=== PATIENT | male | born 1995 | race Caucasian/White ===

== ENCOUNTER 2025-06-24 10:09 | Emergency (ER) | payer SELFPAY ==
[2025-06-24 10:17] VITALS: BP 158/100; PULSE 87; TEMP 36.7; O2SAT 100; BMI 40.7
--- NOTE | 2025-06-24 10:32 | XR_ITS ---
The [address] [address] Patient Name: TON CR MRN: [id number] date: 1995 Sex: M Assigned Patient Location: ED.MAIN Current Patient Location: Accession/Order Number: [id number] Exam Date: 06/24/2025 10:55 Report Date: 06/24/2025 11:49 At the request of: JEIMY CHOW MD Procedure: XR hand LT min 3V LEFT HAND - 3 views CLINICAL DATA: Laceration at the distal index finger with a chainsaw. COMPARISON: None AP, lateral and oblique views were obtained. There is no evidence of fracture or dislocation. A small soft tissue defect is seen at the distal lateral index finger compatible with the reported laceration. No radiopaque foreign bodies noted XR/XR hand LT min 3V IMPRESSION: NO ACUTE BONY INJURY. Impression dictated by: Karin Floyd M.D. 06/24/2025 11:49 AM Dictation Location: [place] [address] Electronically authenticated by: [id number] Y Date: 06/24/2025 11:49
--- NOTE | 2025-06-24 10:33 | ED_ITS ---
HPI HPI - General Adult General Chief complaint: Wound/Laceration Stated complaint: LACERATION L HAND Time Seen by Provider: 06/24/25 10:30 Source: patient Mode of arrival: walk-in History of Present Illness HPI narrative: 30-year-old male presents to the emergency department for chief complaint of laceration to his left index finger which was sustained on a chainsaw just before coming into the emergency department. Last tetanus shot was less than 5 years ago. No other injury was sustained. Related Data Previous Rx's ?Medication ?Instructions ?Recorded cephalexin 500 mg capsule 500 mg PO TID 5 days #15 cap s 06/24/25 Allergies Allergy/AdvReac Type Severity Reaction Status Date / Time Penicillins Allergy Rash Verified 06/24/25 10:17 Opioid HPI Opioid Management Most Recent Opioid Data: Last Pain Scale 8 Today, 10:26 Review of Systems ROS Narrative A ten point review of systems is negative except as noted above. PFSH PFSH Social History Little interest or pleasure in doing things: not at all Feeling down, depressed, or hopeless: not at all Exam Narrative Exam Narrative: Nurses note and vital signs reviewed General:The patient appears well and in no apparent distress.Patient is resting comfortably on cart. Skin:Warm, dry, no pallor noted.There is no rash noted. Head:Normocephalic, atraumatic Eye: Normal conjunctiva, no drainage Ears, Nose, Mouth, and Throat: oral mucosa is moist. Nares patent. Cardiovascular:Regular Rate and Rhythm Respiratory:Patient is in no distress, no accessory muscle use, lungs are clear to auscultation, no wheezing, rales or rhonchi Back:non-tender GI: Soft and nontender Musculoskeletal: The left hand is examined. He has an irregular less than 1 cm laceration at the distal aspect of his index finger. The nail is intact, no subungual hematoma. There is no active bleeding or foreign bodies noted. No other wounds are present. Neurological: Awake and alert Psychiatric:Cooperative Constitutional Vital Signs, click to edit/add: Last Vital Signs Temp 98.1 F 06/24/25 10:17 Pulse 87 06/24/25 10:17 Resp 18 06/24/25 10:17 BP 158/100 H 06/24/25 10:17 Pulse Ox 100 06/24/25 10:17 O2 Del Method Room Air 06/24/25 10:17 Course Vital Signs Vital signs: Vital Signs Temperature 98.1 F 06/24/25 10:17 Pulse Rate 87 06/24/25 10:17 Respiratory Rate 18 06/24/25 10:17 Blood Pressure 158/100 H 06/24/25 10:17 Pulse Oximetry 100 06/24/25 10:17 Oxygen Delivery Method Room Air 06/24/25 10:17 Temperature 98.1 F 06/24/25 10:17 Pulse Rate 87 06/24/25 10:17 Respiratory Rate 18 06/24/25 10:17 Blood Pressure 158/100 H 06/24/25 10:17 Pulse Oximetry 100 06/24/25 10:17 Oxygen Delivery Method Room Air 06/24/25 10:17 Medical Decision Making MDM Narrative Medical decision making narrative: X-ray my interpretation shows no fractures. He is placed on prophylactic Keflex and the wound was cleansed and dressed and tube gauze dressing applied. Treatment diagnosis and follow-up were discussed with the patient. Differential Diagnosis Differential Diagnosis: Laceration, fracture Imaging Data Left hand x-ray: My impression: X-ray of the left hand on my interpretation shows no acute findings Discharge Plan Discharge Chief Complaint: Wound/Laceration Clinical Impression: Laceration of left index finger Patient Disposition: Home, Self-Care Time of Disposition Decision: 11:12 Condition: Good Mode of Transportation: Private Vehicle Prescriptions / Home Meds: New cephalexin 500 mg capsule 500 mg PO TID 5 Days Qty: 15 0RF Print Language: Latvian Instructions: Finger Laceration (ED), Laceration Without Closure (ED) Additional Instructions: Leave tube gauze on for 48 hours. Remove and apply bandage daily. Referrals: Physician,Non-Staff, MD [Primary Care Provider] - 1 week
--- OUTSIDE RECORDS SUMMARY | 2025-06-24 10:53 | XMS_ITS | Patient Health Record ---
Author Organization [facility] vices Address [address] [place], [place] [id number] Support Name Relationship Address Phone Emelia Mays Emergency Contact [address] [place] [address] JodiKelvin ivory Guarantor Unknown [phone] Care Team Providers Care Monotype Machinist Name Role Phone Adria Barcenas Unavailable [phone] Reason For Referral No Information Social History Social History Additional DetailsCategorySocial InfoOptionsDetailsMigrated Social History Migrated Social History Caffeine Use, COMMENTS: pop 2-3 cans per day, ProblemStatus: Active, , Caffeine Use, ProblemStatus: Inactive, , Current tobacco use, AttributeTitle: Never smoker, ProblemStatus: Active, , DIET: Normal well-balanced diet for age, ProblemStatus: Inactive, , No Drug Use, ProblemStatus: Active, , No Drug Use, ProblemStatus: Inactive, , No significant stress issues with home, family, personal relationships, or work, ProblemStatus: Inactive, , Non Drinker/No Alcohol Use, ProblemStatus: Active, , Non Drinker/No Alcohol Use, ProblemStatus: Inactive, , Non Smoker/No Tobacco Use, ProblemStatus: Inactive, , PARENTS WORKING: Mother works outside the home, ProblemStatus: Inactive, , PARENTS WORKING: Mother works, ProblemStatus: Inactive, , Patient feels safe in relationships, ProblemStatus: Active, , PERSONS IN HOME: Patient lives with a sister, ProblemStatus: Inactive, , PERSONS IN HOME: Patient lives with siblings, ProblemStatus: Inactive, , PERSONS IN HOME: The patient lives with a brother, ProblemStatus: Inactive, , PERSONS IN HOME: The patient lives with parents, ProblemStatus: Inactive, , SCHOOL: In the 6th grade, ProblemStatus: Inactive, , SCHOOL: In the 7th grade, ProblemStatus: Inactive, , Tobacco/Smoke Exposure, AttributeTitle: Family members smoke indoors, ProblemStatus: Inactive, , Tobacco/Smoke Exposure, AttributeTitle: Frequent, ProblemStatus: Inactive Problems Problem Type SNOMED Code ICD Code Onset Dates Problem Status W/U Status Risk Notes Problem Derangement, other internal, knee (717.8) (717.8)12/19/2009ctiveconfirmed ProblemDepression screening (878720831)Screening for depression (Z13.31)Active confirmedDescription:Depression screeningProblemChronic sinusitis (16878230) Recurrent sinus infections (J32.9)ActiveconfirmedComment:Since he is Penicillin- allergic, will retreat with SMX-TMP, but for 14 days this time. USe Afrin spray BID for 3-5 days, at hs only.,Description:Recurrent sinusitisProblemAcne (69646851)Acne NEC (706.1) (706.1)07/22/2008ctiveconfirmedProblemAsthma (833597336)Asthma (J45.909)Activeconfirmed Comment:15year old male child here for check for cough, cold since 10 days. On exam- Chest occ transient crackles and wheezing on the left side. Advised: Albuterol q6h, zyrtec to continue. FU in 1 week/PRN. Mom verbalized understanding.,Description:ar ProblemContusion of lower leg (81207961)Contusion of leg, right (S80.11XA)Active confirmed Comment:Rest, take it easy, no Go-Kart racing this weekend. Keep right thigh wound clean and dry, topical antibacterial ointment. To ER if symptoms persist/worsen. PVU and agrees with plan of care.,Story:CT head and neck WNL fromER., ProblemAcute upper respiratory infection (99126265)Acute upper respiratory infection (J06.9)Activeconfirmed Comment:STrpe throat - negative. Advised: Azithromycin. FU in 1 week., ProblemAcute sinusitis (87288967)Sinusitis acute (461.9) (461.9)Activeconfirmed ProblemContusion of left shoulder (74002490891352806)Contusion of left shoulder (S40.012A)ActiveconfirmedComment:ROM exercises,,ProblemGeneral examination of patient (052328115)Routine general medical examination at a health care facility (V70.0) (V70.0)07/02/2008ctiveconfirmedProblemCommon cold (33018325)Acute nasopharyngitis (common cold) (460) (460)ActiveconfirmedComment:viral URI, sx rx , saline nose drops prn, dx course , complications of illness discussed , return if not betterin 4 days or ealier if concerns , to ER IF trouble breathing.mom verbalized understanding,ProblemAcute bronchitis (disorder) (36037526) Bronchitis, acute (466.0) (466.0)Activeconfirmed Comment:Advized : Azithromycin and continue Albuterol and Zyrtec. To FU in 1 week or PRN earlier for breathing difficulty, fever, headace, vomiting, worsening of cough or any other problem. 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 Comment:Apply cream twice daily for 3 days, wait 4 days, and then can repeat cycle up to 4 times Already scheduled with a surgeon for further evaluation Follow up with our office evaluation, ProblemSinusitis, acute (461.) (461)09/19/2009ctiveconfirmedProblemCephalalgia (13365849)Cephalalgia (R51.9)12/16/2008ctiveconfirmedDescription:Headache ProblemCough (10589267)Cough (R05.9)07/13/2007ctiveconfirmed Plan Of Treatment No Information Insurance Providers Payer Name Payer Address Payer Phone Subscriber Number Group Number Insured Name Patient Relationship to Insured Coverage Start Date Coverage End Date Eric [facility] [address] [place], [place] [phone] [id number] [employer] ivory - patient is the [id number]/01/2017Vini Granger [facility] [address] [address] [place] [phone], [place]Self - patient is the [id number] [facility] after [address] [place], [place] [id number], AustinSelf - patient is the [id number]/24/2017 DMedicaid [facility] after CaresourceDentaquest[address] [place], [place] [id number], AustinSelf - patient is the [facility] [address] [place], [place] [phone], AustinSelf - patient is the [id number] Garcia [facility] [address] [place] [phone], AustinSelf - patient is the vawznkz3609/01/2022 Medical (General) History Surgical History Surgery Date(Month/Year) left arm fracture and repair, ProblemSta tus: Active,
--- OUTSIDE RECORDS SUMMARY | 2025-06-24 10:53 | XMS_ITS | Clinical Summary ---
Author Organization [facility] tem Address [id number] [address] [place] [address] Care Team Providers Care Spike Machine Feeder Name Role Phone Services, [facility] Primary Care Provider Allergies Active AllergyReactionsCriticalityNoted LxqkHdmmhiloEoonwjgacvp13/16/2017 Medications MedicationSigDispense QuantityRefillsLast FilledStart DateEnd DateStatus albuterol (PROVENTIL HFA;VENTOLIN HFA) 90 mcg/actuation inhaler Indications:BronchitisInhale 2 puffs every 4 (four) hours as needed for wheezing. 18 g 1Active Active Problems ProblemNoted DateDiagnosed ZvcxYtripbyzm77/23/2018 Overview (11/21/2017): ==== 11/21/2017 ==== patient with perirectal condyloma. No scrotal or penile condyloma. Patient was given topical treatment for the emergency department. Per the patient as well as a significant otherit is working. On examination appears he still has a few more lesions. These are best served with evaluation management by general surgery. There are no scrotal or penile lesions. I am going to referthe patient to Dr Garcia for further evaluation management. No follow-up appointment made in this office. Social History Tobacco UseTypesPacks/DayYears UsedDateSmoking Tobacco: Every DaySmokeless Tobacco: FormerChildcareAnswerDate SpeajwuvPfqkcfpijUotnyqz32/12/2019Employment AnswerDate NnakovtqJviyuygildEplypuf75/12/2019Purpose - LifeAnswerDate Recorded Purpose and direction in mizaGgnelxc85/11/2021Sex and Gender InformationValue Date RecordedSex Assigned at BirthNot on fileLegal MauBhyn2803/06/2015 11:56 AM EDTGender IdentityNot on fileSexual OrientationNot on file Last Filed Vital Signs Vital SignReadingTime TakenCommentsBlood Bncwxtjn40/6007/13/2023 3:43 PM EST Csmjz552507/13/2023 3:43 PM ZMZOguvcavsmev34.7 ??C (98 ??F)07/13/2023 3:43 PM EST Respiratory Slby1270 3:43 PM ESTOxygen Sppuzqrbzt23%07/13/2023 3:43 PM ESTInhaled Oxygen Concentration--Hbhzro302.6 kg (235 lb)07/13/2023 3:43 PM EST Afdvfm627 cm (5' 3 )07/13/2023 3:43 PM ESTBody Mass Index41.6307/13/2023 3:43 PM EST Plan of Treatment Health MaintenanceDue DateLast DoneCommentsDepression Skfajelbk85/04/2006 DTaP,Tdap and Td Vaccines (7 - Td or Tdap), 04/13/2000, 10/07/1995, Additional history existsAdult BMI Rjeamkxxs91 Tobacco Clmxjhoid08Influenza Gqkiejd11 Medical Devices Not on file Insurance Care Teams Team MemberRelationshipSpecialtyStart DateEnd Date Services, [facility] [address] [place] PCP - GeneralFamily Medicine10/27/17
== END 2025-06-24 11:20 | disposition home or self-care (01) ==
PROVIDERS: Emergency Provider Emergency Medicine
DX: S61.211A Laceration without foreign body of left index finger without damage to nail, initial encounter (principal); W29.3XXA Contact with powered garden and outdoor hand tools and machinery, initial encounter
CPT/HCPCS: 73130; 99283